=== PATIENT | female | born 1975 | race Caucasian/White ===

== ENCOUNTER 2019-03-24 15:18 | Inpatient (IN) | payer OTHER ==
[~2019-03-24] VITALS: Ht 170.2 cm; Wt 68.0 kg
[2019-03-24 16:30] LABS: CREATININE 0.8 mg/dL (0.5-1.5); POTASSIUM 3.4 mmol/L (3.5-5.1)
[2019-03-24 16:34] LABS: ALBUMIN 3.7 g/dL (3.5-5.0); BILIRUBIN,TOTAL 0.2 mg/dL (0.2-1.0); TOTAL PROTEIN, SERUM 7.2 g/dL (6.0-8.3)
[2019-03-24 16:52] LABS: BASOPHILS % (AUTO) 0.2 % (0.0-5.0); EOSINOPHILS % (AUTO) 1.7 % (0.0-8.0); HEMATOCRIT 35.8 % (36-48); LYMPHOCYTES % (AUTO) 27.3 % (21.0-51.0); MEAN CORPUSCULAR HEMOGLOBIN 31.6 pg (27.0-33.0); MEAN CORPUSCULAR HGB CONC 34.1 g/dL (32.0-36.0); MEAN CORPUSCULAR VOLUME 92.7 fL (79-99); MONOCYTES % (AUTO) 5.6 % (3.0-13.0); NEUTROPHILS % (AUTO) 65.2 % (40.0-77.0); PLATELET COUNT (AUTO) 263 K/uL (130-400); RED BLOOD CELL COUNT(AUTO) 3.87 MIL/uL (4.00-5.50); RED CELL DISTRIBUTION WIDTH 12.6 % (11.0-15.5); WHITE BLOOD COUNT (AUTO) 9.4 K/uL (4.8-10.8)
[2019-03-24 17:18] LABS: APPEARANCE,URINE Clear (CLEAR); BILIRUBIN,URINE Negative (NEGATIVE); COLOR,URINE Yellow (YELLOW); GLUCOSE, URINE (UA) Negative (NEGATIVE); KETONES,URINE Negative (NEGATIVE); LEUKOCYTE ESTERASE ,URINE Negative (NEGATIVE); NITRATE,URINE Negative (NEGATIVE); OCCULT BLOOD,URINE Large (NEGATIVE); PH,URINE 5.5 (5.0-8.0); PROTEIN,URINE Negative (NEGATIVE); UROBILINOGEN,URINE 0.2 mg/dL (0.2-1.0)
[2019-03-24 17:24] LABS: HCG,QUAL RESULT NEGATIVE (NEGATIVE)
[2019-03-24 17:32] LABS: WBC,URINE 0-1 /HPF (0-1)
[2019-03-24 17:33] LABS: BACTERIA,URINE Rare /HPF (None Seen); SQUAMOUS EPITHELIAL CELL,UR Few /HPF (0-2)
[2019-03-24] MEDS ORDERED: MORPHINE SULFATE 4 MG/1ML SYG IV PRN (19:15)
[2019-03-24] MEDS ORDERED: MORPHINE SULFATE 2 MG/ML 1ML SYG IV PRN (19:15)
[2019-03-24] MEDS: NITROGLYCERIN 1GM/1 INCH PACKET TD SCH (19:15)
[2019-03-24] MEDS ORDERED: ONDANSETRON HCL 4 MG/2 ML VIAL IV PRN (19:15)
[2019-03-24] MEDS ORDERED: HYDRALAZINE HCL 20 MG/ML VIAL IV PRN (19:15)
[2019-03-24] MEDS ORDERED: ACETAMINOPHEN 325 MG TAB PO PRN ×2 (19:15)
[2019-03-24] MEDS: ENOXAPARIN SODIUM 30 MG/0.3 ML SQ SCH (21:00)
[2019-03-24] MEDS: FAMOTIDINE/PF 20 MG/2 ML VIAL IV SCH (21:00)
[2019-03-24] MEDS: METOPROLOL TARTRATE 25 MG TAB PO SCH (21:00)
[2019-03-24] MEDS ORDERED: NITROGLYCERIN 1GM/1 INCH PACKET TD ONE (21:06)
[2019-03-24] MEDS ORDERED: METOPROLOL TARTRATE 25 MG TAB ONE (21:06)
[2019-03-24] MEDS ORDERED: ENOXAPARIN SODIUM 30 MG/0.3 ML SQ ONE (21:06)
[2019-03-24] MEDS ORDERED: FAMOTIDINE/PF 20 MG/2 ML VIAL IV ONE (21:06)
[2019-03-24 22:20] VITALS: BP 125/81
[2019-03-24] MEDS ORDERED: DILT30 PO (23:13)
[2019-03-24] MEDS ORDERED: ISOS20TA7 PO (23:13)
[2019-03-24] MEDS ORDERED: NITR0.4T50 SL (23:13)
[2019-03-24 23:27] LABS: CREATINE KINASE, TOTAL 57 U/L (21-232); MYOGLOBIN 44 ng/mL (10-92); TROPONIN I < 0.04 ng/mL (0.00-0.06)
--- NOTE | 2019-03-25 | NUR ---
Pt.instructed to be on NPO at this time and demonstrated understanding
[2019-03-25 00:05] VITALS: BP 104/61
[2019-03-25 03:57] LABS: CREATINE KINASE, TOTAL 53 U/L (21-232); MYOGLOBIN 34 ng/mL (10-92); TROPONIN I < 0.04 ng/mL (0.00-0.06)
[2019-03-25 04:06] VITALS: BP 101/61
[2019-03-25] MEDS: NITROGLYCERIN 1GM/1 INCH PACKET TD SCH ×2 (05:23→10:19)
[2019-03-25 07:00] VITALS: BP 106/61
--- NOTE | 2019-03-25 07:32 | NUR ---
bEDSIDE REPORT GIVEN TO INCOMING NOD,PT. FOR STRESS TEST TODAY,REMAINED NPO.
--- NOTE | 2019-03-25 07:45 | NUR ---
AM ASSESSMENT PT LAYING IN BED, HOB ELEVATED 30 DEGREES, WATCHING TV. A/O X 3. NO SOB. NO DISTRESS NOTED. DENIES CHEST PAIN OR DISCOMFORT. DENIES PALPITATIONS. DENIES LIGHT HEADEDNESS. DENIES DIZZINESS. TELE: SB 50s. DENIES N/V AND/OR DIARRHEA. NPO STATUS REINFORCED. PT TO HAVE STEF SCAN TODAY. UP AD SHIRAZ. INSTRUCTED TO CALL FOR ASSISTANCE. CALL MATT W/IN REACH.
[2019-03-25] MEDS ORDERED: REGADENOSON 0.4 MG/5 ML PF SYG IVP SCH (08:30)
[2019-03-25] MEDS: FAMOTIDINE/PF 20 MG/2 ML VIAL IV SCH (09:00)
[2019-03-25] MEDS ORDERED: ASPIRIN 325 MG TABLET PO SCH (09:00)
[2019-03-25] MEDS ORDERED: ATORVASTATIN CALCIUM 20 MG TABLET PO SCH (09:00)
[2019-03-25 11:00] VITALS: BP 113/74
[2019-03-25 11:15] LABS: CREATINE KINASE, TOTAL 51 U/L (21-232); MYOGLOBIN 32 ng/mL (10-92); TROPONIN I < 0.04 ng/mL (0.00-0.06)
[2019-03-25] MEDS: ENOXAPARIN SODIUM 30 MG/0.3 ML SQ SCH (14:15)
[2019-03-25] MEDS: METOPROLOL TARTRATE 25 MG TAB PO SCH (14:16)
--- NOTE | 2019-03-25 14:21 | NUR ---
RD Notification Pt admitted for chest pain. Pt diet held for procedure at time of visit. Pt LBM 03/23/19. Pt monitored labs: K 3.4. No nutrition concerns at this time. RD to continue to monitor. Please notify RD as nutritional concerns arise. Thank you. Addendum: 03/25/19 at 1424 [address] RD RD Amended: Links added.
[2019-03-25 16:00] VITALS: BP 107/70
--- NOTE | 2019-03-25 16:35 | NUR ---
DC PLAN VISITED WITH PATIENT. PATIENT LIVES WITH SPOUSE. INDEPENDENT ABLE TO PERFORM ADL'S. NO SERVICES OR DME'S. FEELS SAFE TO RETURN HOME. Addendum: 03/25/19 at 1636 by SHADE BRENNER RN CM Amended: Links added.
[2019-03-25] MEDS ORDERED: DILT60TA36 PO (17:53)
--- NOTE | 2019-03-25 18:30 | NUR ---
DISCHARGE TELE SHELLY REMOVED. IV DISCONTINUED.
--- NOTE | 2019-03-25 18:45 | NUR ---
DISCHARGE VERBAL & WRITTEN DISCHARGE INSTRUCTIONS REVIEWED & GIVEN TO PT. QUESTIONS ENCOURAGED & CLARIFIED. PROPER CARE & MGT OF UNSTABLE ANGINA REVIEWED. CHANGE IN DOSE OF HOME MEDICATION REVIEWED W/PT. PRESCRIPTION GIVEN TO PT. PT TO F/U W/DR DURHAM TOMORROW. PT TO GATHER PERSONAL BELONGINGS. SPOUSE TO TAKE PT HOME. PT WILL NOTIFY STAFF WHEN SPOUSE ARRIVES TO TAKE PT HOME.
--- NOTE | 2019-03-25 19:35 | NUR ---
DISCHARGE SPOUSE HERE TO TAKE PT HOME. PT TAKEN TO PRIVATE VEHICLE VIA WC BY S PAUL PCP. NO DISTRESS NOTED. SPOUSE AWAITING FOR PT IN VEHICLE.
== END 2019-03-25 19:40 | disposition home or self-care (01) | DRG 313 ==
LOC: EDH 15:18 → EDHIP 15:19 → 2DH 22:35
PROVIDERS: ADMIT Internal Medicine; ATTEND Internal Medicine
DX: R07.9 Chest pain, unspecified (principal); I20.0 Unstable angina; I49.3 Ventricular premature depolarization; F17.210 Nicotine dependence, cigarettes, uncomplicated; I10 Essential (primary) hypertension; Z88.8 Allergy status to other drugs, medicaments and biological substances
CPT/HCPCS: 36415; 71046; 78452; 80053; 81001; 81025; 82550; 83690; 83874; 84484; 85025; 85378; 93005; 93017; 96374; A9500; G0378; J1650; J2785; J3490

== ENCOUNTER 2022-09-08 17:27 | Emergency (ER) | payer BC, OTHER ==
[~2022-09-08] VITALS: Ht 170.2 cm; Wt 74.8 kg
[~2022-09-08 17:27] MED LIST: DILT60TA36 PO; ISOS20TA85 PO; NITR0.4T50 SL
[2022-09-08 18:51] LABS: BASOPHILS % (AUTO) 0.4 % (0.0-5.0); EOSINOPHILS % (AUTO) 2.4 % (0.0-8.0); HEMATOCRIT 34.7 % (36-48); LYMPHOCYTES % (AUTO) 33.3 % (21.0-51.0); MEAN CORPUSCULAR HEMOGLOBIN 30.2 pg (27.0-33.0); MEAN CORPUSCULAR HGB CONC 33.7 g/dL (32.0-36.0); MEAN CORPUSCULAR VOLUME 89.4 fL (79-99); MONOCYTES % (AUTO) 6.6 % (3.0-13.0); NEUTROPHILS % (AUTO) 57.2 % (40.0-77.0); PLATELET COUNT (AUTO) 270 K/uL (130-400); RED BLOOD CELL COUNT(AUTO) 3.88 MIL/uL (4.00-5.50); RED CELL DISTRIBUTION WIDTH 12.3 % (11.0-15.5); WHITE BLOOD COUNT (AUTO) 6.7 K/uL (4.8-10.8)
[2022-09-08 19:23] LABS: POTASSIUM 3.9 mmol/L (3.5-5.1)
[2022-09-08 19:27] LABS: ALBUMIN 3.7 g/dL (3.5-5.0); TOTAL PROTEIN, SERUM 7.4 g/dL (6.0-8.3)
[2022-09-08 22:51] LABS: APPEARANCE,URINE CLEAR (CLEAR); BILIRUBIN,URINE NEGATIVE (NEGATIVE); COLOR,URINE LIGHT-YELLOW (YELLOW); GLUCOSE, URINE (UA) NEGATIVE (NEGATIVE); KETONES,URINE NEGATIVE (NEGATIVE); LEUKOCYTE ESTERASE ,URINE 25 Leu/uL (NEGATIVE); NITRATE,URINE NEGATIVE (NEGATIVE); OCCULT BLOOD,URINE MODERATE (NEGATIVE); PROTEIN,URINE NEGATIVE (NEGATIVE); UROBILINOGEN,URINE 0.2 mg/dL (0.2-1.0)
[2022-09-08 22:53] LABS: HCG,QUALITATIVE URINE NEGATIVE (NEGATIVE)
[2022-09-08 22:55] LABS: BACTERIA,URINE RARE /HPF (None Seen); MUCUS,URINE RARE LPF (None Seen); OTHER CASTS, URINE 1 /LPF (None Seen); RBC,URINE 26-50 /HPF (0-1); SQUAMOUS EPITHELIAL CELL,UR RARE /HPF (0-2)
[2022-09-09] MEDS ORDERED: ACETAMINOPHEN 500 MG TABLET PO ONE
[2022-09-09] MEDS ORDERED: FOSF3PAC4 PO (01:37)
[2022-09-09 05:38] VITALS: BP 145/85
== END 2022-09-09 05:44 | disposition home or self-care (01) ==
LOC: EDH 17:27
DX: N30.90 Cystitis, unspecified without hematuria (principal); J45.909 Unspecified asthma, uncomplicated; Z88.0 Allergy status to penicillin; Z88.2 Allergy status to sulfonamides; Z88.1 Allergy status to other antibiotic agents; Z88.8 Allergy status to other drugs, medicaments and biological substances; Z79.899 Other long term (current) drug therapy; Z90.49 Acquired absence of other specified parts of digestive tract
CPT/HCPCS: 36415; 74018; 74176; 80053; 81001; 81025; 82150; 83690; 85025